=== PATIENT | female | born 1990 | race Caucasian/White ===

== ENCOUNTER 2017-05-16 22:48 | Inpatient (IN) | payer BC ==
[2017-05-17] MEDS ORDERED: Sodium Chloride 0.9% 10 ML Syringe FLUSH PRN (00:25)
[2017-05-17] MEDS ORDERED: Oxytocin/Lactated Ringers 10 UNIT/1,000 ML BAG IV SCH (00:30)
[2017-05-17] MEDS: Lactated Ringers 1,000 ML IV SCH ×4 (02:50→08:13)
[2017-05-17] MEDS ORDERED: fentaNYL 100 MCG/2 ML SDV EPIDUR PRN (03:11)
[2017-05-17] MEDS ORDERED: ePHEDrine 50 MG/ML SDV IVPUSH PRN (03:11)
[2017-05-17] MEDS ORDERED: Ondansetron 4 MG/2 ML SDV IVPUSH PRN (03:11)
--- NOTE | 2017-05-17 03:13 | PCM.PREANE ---
Preanesthetic Assessment - Anesthesia/Transfusion/Family Hx Anesthesia History: Prior Anesthesia Without Reaction Family History of Anesthesia Reaction: No Transfusion History: No Prior Transfusion(s) Intubation History: Unknown - Review of Systems General: No Symptoms Pulmonary: No Symptoms Cardiovascular: No Symptoms Gastrointestinal: No Symptoms Neurological: Tingling (CTS with ) Other: Reports: None - Physical Assessment NPO Status Date: 05/16/17 NPO Status Time: 12:00 Pulse: 84 O2 Sat by Pulse Oximetry: 97 Respiratory Rate: 16 Blood Pressure: 125/73 Temperature: 36.7 C Vital Signs: Last Vital Signs Temp 36.7 C 05/17/17 00:25 Pulse 84 05/17/17 00:25 Resp 16 05/17/17 00:25 BP 125/73 05/17/17 00:25 Pulse Ox 97 05/17/17 00:25 Height: 1.57 m Weight: 72.665 kg ASA Class: 2 Mental Status: Alert & Oriented x3 Airway Class: Mallampati = 2 Dentition: Reports: Normal Dentition (bottom retainer noted.), Caries Thyro-Mental Finger Breadths: 3 Mouth Opening Finger Breadths: 3 ROM/Head Extension: Full Lungs: Clear to Auscultation, Normal Respiratory Effort Cardiovascular: Regular Rate, Regular Rhythm, No Murmurs - Lab Values: Laboratory Last Values WBC 15.79 K/mm3 (3.98-10.04) H 05/17/17 00:40 RBC 4.09 M/mm3 (3.98-5.22) 05/17/17 00:40 Hgb 12.2 gm/L (11.2-15.7) 05/17/17 00:40 Hct 37.3 % (34.1-44.9) 05/17/17 00:40 MCV 91.2 fl (79.4-94.8) 05/17/17 00:40 MCH 29.8 pg (25.6-32.2) 05/17/17 00:40 MCHC 32.7 g/dl (32.2-35.5) 05/17/17 00:40 RDW Std Deviation 45.8 fL (36.4-46.3) 05/17/17 00:40 Plt Count 197 K/mm3 (182-369) 05/17/17 00:40 MPV 10.9 fl (9.4-12.3) 05/17/17 00:40 Neut % (Auto) 75.8 % (34.0-71.1) H 05/17/17 00:40 Lymph % (Auto) 14.9 % (19.3-51.7) L 05/17/17 00:40 [place] % (Auto) 7.2 % (4.7-12.5) 05/17/17 00:40 Eos % (Auto) 0.8 (0.7-5.8) 05/17/17 00:40 Baso % (Auto) 0.3 % (0.1-1.2) 05/17/17 00:40 Neut # (Auto) 11.96 K/mm3 (1.56-6.13) H 05/17/17 00:40 Lymph # (Auto) 2.36 K/mm3 (1.18-3.74) 05/17/17 00:40 [place] # (Auto) 1.14 K/mm3 (0.24-0.36) H 05/17/17 00:40 Eos # (Auto) 0.12 K/mm3 (0.04-0.36) 05/17/17 00:40 Baso # (Auto) 0.05 K/mm3 (0.01-0.08) 05/17/17 00:40 Manual Slide Review Normal smear 05/17/17 00:40 Blood Type O POSITIVE 05/17/17 00:40 Gel Antibody Screen Negative 05/17/17 00:40 Above labs reviewed and noted. - Allergies Allergies/Adverse Reactions: Allergies Allergy/AdvReac Type Severity Reaction Status Date / Time No Known Allergies Allergy Verified 01/31/15 10:27 - Anesthesia Plan Pre-Op Medication Ordered: None - Acknowledgements Anesthesia Type Planned: Epidural Pt an Appropriate Candidate for the Planned Anesthesia: Yes Alternatives and Risks of Anesthesia Discussed w Pt/Guardian: Yes Pt/Guardian Understands and Agrees with Anesthesia Plan: Yes PreAnesthesia Questionnaire - Past Health History Medical/Surgical History: Denies Medical/Surgical History Gastrointestinal History: Reports: GERD, Other (See Below) 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: Reports: - Past Surgical History HEENT Surgical History: Reports: Oral Surgery, Tonsillectomy Other HEENT Surgeries/Procedures: Tosillectomy 2010, [place] teeth removal 2012 - SUBSTANCE USE Smoking Status *Q: Former Smoker Tobacco Use Within Last Twelve Months: No Second Hand Smoke Exposure: No Days Per Week of Alcohol Use: 0 Recreational Drug Use History: No - HOME MEDS Home Medications: Home Meds PNV95/Ferrous Fumarate/FA [ Multivitamins] 1 each PO DAILY 01/31/15 [ History] - CURRENT (IN HOUSE) MEDS Current Meds: Current Medications Lactated Ringer's (Ringers, Lactated) 1,000 mls @ 100 mls/hr IV ASDIRECTED ESTIVEN Oxytocin/Lactated Ringer's (Pitocin In Lr 10 Units/1,000 Ml) 10 unit in 1,000 mls @ 100 mls/hr IV .CONTINUOUS ESTIVEN Sodium Chloride (Saline Flush) 10 ml FLUSH ASDIRECTED PRN PRN Reason: Keep Vein Open
[2017-05-17] MEDS ORDERED: Bupivacaine/fentaNYL/NS 100 ML Bag EPIDUR SCH (03:15)
--- NOTE | 2017-05-17 08:05 | PCM.LDHP ---
L&D History of Present Illness - General Date of Service: 05/17/17 Admit Problem/Dx: Patient Status Order with Admit Dx/Problem 05/17/17 00:25 Patient Status [ADT] Routine Admission Diagnosis/Problem Admission Diagnosis/Problem - History of Present Illness Introduction:: 26 year old female at 38w5d admitted with very painful uterine contractions and cervical change from 2 (reportedly in the clinic) to 3 and then to 4+. care with Dr. Ponce without complications. O+/Jonathan/GBSneg Pain Score: 10 - Related Data Allergies/Adverse Reactions: Allergies Allergy/AdvReac Type Severity Reaction Status Date / Time No Known Allergies Allergy Verified 01/31/15 10:27 Home Medications: Home Meds PNV95/Ferrous Fumarate/FA [ Multivitamins] 1 each PO DAILY 01/31/15 [ History] Past Medical History - Past Health History Medical/Surgical History: Denies Medical/Surgical History Gastrointestinal History: Reports: GERD, Other (See Below) Other Gastrointestinal History: only with PATHOLOGIST History: Reports: - Past Surgical History HEENT Surgical History: Reports: Oral Surgery, Tonsillectomy Other HEENT Surgeries/Procedures: Tosillectomy 2010, [place] teeth removal 2012 Social & Family History - Family History Family Medical History: Noncontributory - Tobacco Use Smoking Status *Q: Former Smoker Used Tobacco, but Quit: Yes Month Tobacco Last Used: 2011 Second Hand Smoke Exposure: No - Caffeine Use Caffeine Use: Reports: Coffee Caffeine Use Comment: 3-4 times per week - Alcohol Use Days Per Week of Alcohol Use: 0 - Recreational Drug Use Recreational Drug Use: No H&P Review of Systems - Review of Systems: Review Of Systems: See Below General: Reports: No Symptoms HEENT: Reports: No Symptoms Pulmonary: Reports: No Symptoms Cardiovascular: Reports: No Symptoms Gastrointestinal: Reports: No Symptoms Genitourinary: Reports: No Symptoms Musculoskeletal: Reports: No Symptoms Skin: Reports: No Symptoms Psychiatric: Reports: No Symptoms Neurological: Reports: No Symptoms Hematologic/Lymphatic: Reports: No Symptoms Immunologic: Reports: No Symptoms L&D Exam - Exam Exam: See Below - Vital Signs Vital Signs: Last Vital Signs Temp 36.7 C 05/17/17 03:26 Pulse 84 05/17/17 03:26 Resp 16 05/17/17 03:26 BP 125/73 05/17/17 03:26 Pulse Ox 97 05/17/17 03:26 Weight: 72.665 kg - OB Specific Contraction Intensity: Moderate to Strong Movement: Active Heart Tones: Present Heart Rate (FHR) Variability: Moderate (6-25 bmp) Presentation: Vertex - Burnett Score Burnett Score Cervix Position: Midposition Burnett Score Consistency: Soft Burnett Score Dilation: > 5 cm Burnett Score Infant's Station: -3 - Exam General: Alert, Oriented HEENT: PERRLA, Conjunctiva Clear, EACs Clear, EOMI, Hearing Intact, Mucosa Moist & [place], Nares Patent, Normal Nasal Septum, Posterior Pharynx Clear, TMs Clear Neck: Supple, Trachea Midline Lungs: Clear to Auscultation, Normal Respiratory Effort Cardiovascular: Regular Rate, Regular Rhythm GI/Abdominal Exam: Normal Bowel Sounds, Soft, Non-Tender, No Organomegaly, No Distention, No Abnormal Bruit, No Mass, Pelvis Stable Genitourinary: Normal external exam Back Exam: Normal Inspection, Full Range of Motion Extremities: Normal Inspection, Normal Range of Motion, Non-Tender, No Pedal Edema, Normal Capillary Refill Skin: Warm, Dry, Intact Neurological: Cranial Nerves Intact, Reflexes Equal Bilateral Psychiatric: Alert, Normal Affect, Normal Mood - Patient Data Lab Results Last 24 hrs: Laboratory Results - last 24 hr 05/17/17 05/17/17 Range/Units 00:40 00:40 WBC 15.79 H (3.98-10.04) K/mm3 RBC 4.09 (3.98-5.22) M/mm3 Hgb 12.2 (11.2-15.7) gm/L Hct 37.3 (34.1-44.9) % MCV 91.2 (79.4-94.8) fl MCH 29.8 (25.6-32.2) pg MCHC 32.7 (32.2-35.5) g/dl RDW Std Deviation 45.8 (36.4-46.3) fL Plt Count 197 (182-369) K/mm3 MPV 10.9 (9.4-12.3) fl Neut % (Auto) 75.8 H (34.0-71.1) % Lymph % (Auto) 14.9 L (19.3-51.7) % [place] % (Auto) 7.2 (4.7-12.5) % Eos % (Auto) 0.8 (0.7-5.8) Baso % (Auto) 0.3 (0.1-1.2) % Neut # (Auto) 11.96 H (1.56-6.13) K/mm3 Lymph # (Auto) 2.36 (1.18-3.74) K/mm3 [place] # (Auto) 1.14 H (0.24-0.36) K/mm3 Eos # (Auto) 0.12 (0.04-0.36) K/mm3 Baso # (Auto) 0.05 (0.01-0.08) K/mm3 Manual Slide Review Normal smear Blood Type O POSITIVE Gel Antibody Screen Negative Result Diagrams: 05/17/17 00:40 Problem List Initiated/Reviewed/Updated: Yes Orders Last 24hrs: Active Orders 24 hr Category Date Time Status Patient Status [ADT] Routine ADT 05/17/17 00:25 Active Activity as Tolerated [RC] PFP Care 05/17/17 00:25 Active Communication Order [RC] ASDIRECTED Care 05/17/17 00:25 Active Heart Tones [RC] ASDIRECTED Care 05/17/17 00:26 Active Notify Provider [RC] ASDIRECTED Care 05/17/17 03:11 Active Notify Provider [RC] PFP Care 05/17/17 00:25 Active Notify Provider [RC] PRN Care 05/17/17 00:25 Active Oxygen Therapy [RC] ASDIRECTED Care 05/17/17 03:10 Active Peripheral IV Care [RC] . DIRECTED Care 05/17/17 00:26 Active Pulse Oximetry [RC] ASDIRECTED Care 05/17/17 03:11 Active Vital Signs [RC] PER UNIT ROUTINE Care 05/17/17 00:25 Active Clear Liquid Diet [DIET] Diet 05/17/17 Breakfast Active PATIENT RETYPE [BBK] Routine Lab 05/17/17 00:40 Results TYPE AND SCREEN [BBK] Routine Lab 05/17/17 00:40 Results Bupivacaine/fentaNYL/NS [fentaNYL/Bupivacaine/NS 2 MCG- Med 05/17/17 03:15 Active 0.125% 100 ML] 100 ml EPIDUR ASDIRECTED Lactated Ringers [Ringers, Lactated] 1,000 ml Med 05/17/17 00:30 Active IV ASDIRECTED Ondansetron [Zofran] Med 05/17/17 03:11 Active 4 mg IVPUSH ONETIME PRN Oxytocin/Lactated Ringers [Pitocin in LR 10 Units/1,000 Med 05/17/17 00:30 Active ML] 10 unit in 1,000 ml IV .CONTINUOUS Sodium Chloride 0.9% [Saline Flush] Med 05/17/17 00:25 Active 10 ml FLUSH ASDIRECTED PRN ePHEDrine [ePHEDrine Sulfate] Med 05/17/17 03:11 Active 5 mg IVPUSH ASDIRECTED PRN fentaNYL [Sublimaze] Med 05/17/17 03:11 Active 100 mcg EPIDUR Q3H PRN Electronic Heart Tones Ext w TOCO [WOMSER] Oth 05/17/17 00:25 Ordered Routine Electronic Heart Tones Internal [WOMSER] Per Unit Oth 05/17/17 00:25 Ordered Routine Peripheral IV Insertion Adult [OM.PC] Routine Oth 05/17/17 00:25 Ordered Resuscitation Status Routine Resus Stat 05/17/17 00:25 Ordered Medication Orders Ephedrine Sulfate (Ephedrine Sulfate) 5 mg IVPUSH ASDIRECTED PRN PRN Reason: Hypotension Fentanyl (Sublimaze) 100 mcg EPIDUR Q3H PRN PRN Reason: Pain Last Admin: 05/17/17 03:28 Dose: 100 mcg Fentanyl/Bupivacaine HCl (Fentanyl/Bupivacaine/Ns 2 Mcg-0.125% 100 Ml) 100 ml EPIDUR ASDIRECTED [facility] Last Admin: 05/17/17 03:27 Dose: 100 ml Lactated Ringer's (Ringers, Lactated) 1,000 mls @ 100 mls/hr IV ASDIRECTED [facility] Last Infusion: 05/17/17 06:08 Dose: 800 mls/hr Admin: 05/17/17 06:01 Dose: 999 mls/hr Infusion: 05/17/17 05:44 Dose: 999 mls/hr Admin: 05/17/17 04:43 Dose: 999 mls/hr Infusion: 05/17/17 04:00 Dose: 999 mls/hr Infusion: 05/17/17 03:00 Dose: 999 mls/hr Admin: 10/21/17 02:50 Dose: 100 mls/hr Oxytocin/Lactated Ringer's (Pitocin In Lr 10 Units/1,000 Ml) 10 unit in 1,000 mls @ 100 mls/hr IV .CONTINUOUS ESTIVEN Ondansetron HCl (Zofran) 4 mg IVPUSH ONETIME PRN PRN Reason: Nausea/Vomiting Sodium Chloride (Saline Flush) 10 ml FLUSH ASDIRECTED PRN PRN Reason: Keep Vein Open Assessment/Plan Comment:: Term . Epidural now in place - progressing well. IVF. Monitor progress closely. Consider AROM. Anticipate .
--- NOTE | 2017-05-17 08:27 | PCM.PNLD ---
Labor Progress Note - VS & Meds Vital Signs: Last Vital Signs Temp 36.7 C 05/17/17 03:26 Pulse 84 05/17/17 03:26 Resp 16 05/17/17 03:26 BP 125/73 05/17/17 03:26 Pulse Ox 97 05/17/17 03:26 Active Medications: Current Medications Ephedrine Sulfate (Ephedrine Sulfate) 5 mg IVPUSH ASDIRECTED PRN PRN Reason: Hypotension Fentanyl (Sublimaze) 100 mcg EPIDUR Q3H PRN PRN Reason: Pain Last Admin: 05/17/17 03:28 Dose: 100 mcg Fentanyl/Bupivacaine HCl (Fentanyl/Bupivacaine/Ns 2 Mcg-0.125% 100 Ml) 100 ml EPIDUR ASDIRECTED ESTIVEN Last Admin: 05/17/17 03:27 Dose: 100 ml Lactated Ringer's (Ringers, Lactated) 1,000 mls @ 100 mls/hr IV ASDIRECTED ESTIVEN Last Admin: 05/17/17 08:13 Dose: 100 mls/hr Oxytocin/Lactated Ringer's (Pitocin In Lr 10 Units/1,000 Ml) 10 unit in 1,000 mls @ 100 mls/hr IV .CONTINUOUS ESTIVEN Ondansetron HCl (Zofran) 4 mg IVPUSH ONETIME PRN PRN Reason: Nausea/Vomiting Sodium Chloride (Saline Flush) 10 ml FLUSH ASDIRECTED PRN PRN Reason: Keep Vein Open - Uterine Contractions Uterine Monitoring Mode: External [place] Contraction Intensity: Moderate to Strong - Monitoring Monitor Mode: External Ultrasound Heart Rate (FHR) Baseline: 140 Heart Rate (FHR) Variability: Moderate (6-25 bmp) Accelerations: Present, 15x15 Decelerations: None Strip Review: Category I - Vaginal Exam Dilation (cm): 6 Effacement (Percent): 90 Station: -3 Cervical Position: Midposition - Labor Progress (Free Text) Labor Progress: AROM clear fluid. Good progress. Comfortable with epidural.
[2017-05-17] MEDS ORDERED: Hydrocortisone Acetate 25 MG Supp RECTAL PRN (12:03)
[2017-05-17] MEDS ORDERED: Witch Hazel Medicated Pads 100/Jar TOP PRN (12:03)
[2017-05-17] MEDS ORDERED: Lanolin 100% Cream 7 GM Tube TOP PRN (12:03)
[2017-05-17] MEDS ORDERED: Benzocaine/Menthol 20%-0.5% Spray 56 GM Canister TOP PRN (12:03)
[2017-05-17] MEDS: Prenatal Multivitamin with Calcium/Folic Acid/Iron Tab PO SCH (12:54)
[2017-05-17] MEDS: Ibuprofen 600 MG Tab PO PRN ×2 (12:55→18:53)
[2017-05-17] MEDS ORDERED: Acetaminophen 325 MG Tab PO PRN (22:08)
[2017-05-17] MEDS ORDERED: Bupivacaine 0.25% 10 ML SDV ONE (22:22)
[2017-05-18] MEDS: Ibuprofen 600 MG Tab PO PRN ×2 (00:57→08:21)
--- NOTE | 2017-05-18 07:46 | PCM.DCSUM1 ---
Discharge Summary - Hospital Course Brief History: Admitted 05.17.17 in active labor. 05.17.17 without complications. - Discharge Data Discharge Date: 05/18/17 Discharge Disposition: Home, Self-Care 01 Condition: Good - Patient Summary/Data Hospital Course: without complications. Uncomplicated course. - Patient Instructions Diet: Usual Diet as Tolerated Activity: No Strenuous Activities Activity, Other: pelvic rest Driving: May Drive Today Showering/Bathing: May Shower Notify Provider of: Fever, Increased Pain, Swelling and Redness, Drainage, Nausea and/or Vomiting - Discharge Plan Home Medications: Home Meds PNV95/Ferrous Fumarate/FA [ Multivitamins] 1 each PO DAILY 01/31/15 [ History] Patient Handouts: Vaginal Delivery, Care After Referrals: Ashley Ponce MD [Physician] - (6 weeks) - Discharge Summary/Plan Comment DC Time >30 min.: No - General Info Date of Service: 05/18/17 Functional Status: Reports: Pain Controlled - Review of Systems General: Reports: No Symptoms HEENT: Reports: No Symptoms Pulmonary: Reports: No Symptoms Cardiovascular: Reports: No Symptoms Gastrointestinal: Reports: No Symptoms Genitourinary: Reports: No Symptoms Musculoskeletal: Reports: No Symptoms Skin: Reports: No Symptoms Neurological: Reports: No Symptoms Psychiatric: Reports: No Symptoms - Patient Data Vitals - Most Recent: Last Vital Signs Temp 36.5 C 05/18/17 03:53 Pulse 111 H 05/18/17 03:53 Resp 16 05/18/17 03:53 BP 110/54 L 05/18/17 03:53 Pulse Ox 98 05/18/17 03:53 Weight - Most Recent: 72.665 kg Med Orders - Current: Current Medications Acetaminophen (Tylenol) 650 mg PO Q6H PRN PRN Reason: Pain Last Admin: 05/17/17 22:19 Dose: 650 mg Benzocaine/Menthol (Dermoplast Pain Relief [place]) 0 gm TOP ASDIRECTED PRN PRN Reason: Perineal Comfort Measure Last Admin: 05/17/17 12:56 Dose: 1 can Emollient Ointment (Lansinoh Hpa) 0 gm TOP ASDIRECTED PRN PRN Reason: Sore Nipples Hydrocortisone Acetate (Anucort-Hc) 25 mg RECTAL BID PRN PRN Reason: Hemorrhoid pain Ibuprofen (Motrin) 600 mg PO Q6H PRN PRN Reason: Mild pain or fever Last Admin: 05/18/17 00:57 Dose: 600 mg Prenat Multivit/[place]/Iron/Folic Ac ( Plus Iron) 1 each PO DAILY [facility] Last Admin: 05/17/17 12:54 Dose: 1 each Witch Brittany (Tucks) 1 pad TOP ASDIRECTED PRN PRN Reason: Hemorrhoid pain Last Admin: 05/17/17 12:55 Dose: 1 canister Discontinued Medications Ephedrine Sulfate (Ephedrine Sulfate) 5 mg IVPUSH ASDIRECTED PRN PRN Reason: Hypotension Fentanyl (Sublimaze) 100 mcg EPIDUR Q3H PRN PRN Reason: Pain Last Admin: 05/17/17 03:28 Dose: 100 mcg Fentanyl/Bupivacaine HCl (Fentanyl/Bupivacaine/Ns 2 Mcg-0.125% 100 Ml) 100 ml EPIDUR ASDIRECTED [facility] Last Admin: 05/17/17 03:27 Dose: 100 ml Lactated Ringer's (Ringers, Lactated) 1,000 mls @ 100 mls/hr IV ASDIRECTED [facility] Last Admin: 05/17/17 08:13 Dose: 100 mls/hr Oxytocin/Lactated Ringer's (Pitocin In Lr 10 Units/1,000 Ml) 10 unit in 1,000 mls @ 100 mls/hr IV .CONTINUOUS [facility] Last Admin: 05/17/17 11:05 Dose: 500 mls/hr Ondansetron HCl (Zofran) 4 mg IVPUSH ONETIME PRN PRN Reason: Nausea/Vomiting Sodium Chloride (Saline Flush) 10 ml FLUSH ASDIRECTED PRN PRN Reason: Keep Vein Open - Exam General: Reports: Alert, Oriented HEENT: Reports: Pupils Equal, Pupils Reactive, EOMI, Mucous Membr. Moist/[place]ck: Reports: Supple Lungs: Reports: Clear to Auscultation, Normal Respiratory Effort Cardiovascular: Reports: Regular Rate, Regular Rhythm GI/Abdominal Exam: Normal Bowel Sounds, Soft, Non-Tender, No Organomegaly, No Distention, No Abnormal Bruit, No Mass, Pelvis Stable Back Exam: Reports: Normal Inspection, Full Range of Motion Extremities: Normal Inspection, Normal Range of Motion, Non-Tender, No Pedal Edema, Normal Capillary Refill Skin: Reports: Warm, Dry, Intact Wound/Incisions: Reports: Healing Well Neurological: Reports: No New Focal Deficit Psy/Mental Status: Reports: Alert, Normal Affect, Normal Mood *Q Meaningful Use (DIS) - VTE *Q VTE Criteria *Q: - Stroke *Q Stroke Criteria *Q: - AMI *Q AMI Criteria *Q:
[2017-05-18] MEDS: Prenatal Multivitamin with Calcium/Folic Acid/Iron Tab PO SCH (08:21)
[2017-05-18 08:59] VITALS: BP 120/74
== END 2017-05-18 12:47 | disposition home or self-care (01) | DRG 560 ==
LOC: JD.OBCHECK 22:48 → JD.OB 22:52 → JD.OBCHECK 05-17 00:25 → JD.OB 05-17 00:25 → OBSVTOIN 05-17 11:03 → JD.OB 05-17 11:03
PROVIDERS: ADMIT Obstetrics & Gynecology; ATTEND Obstetrics & Gynecology
PROC: 10E0XZZ Delivery of Products of Conception, External Approach (ICD-10-PCS; principal; 2017-05-17)
PROC: 10907ZC Drainage of Amniotic Fluid, Therapeutic from Products of Conception, Via Natural or Artificial Opening (ICD-10-PCS; 2017-05-17)
PROC: 0KQM0ZZ Repair Perineum Muscle, Open Approach (ICD-10-PCS; 2017-05-17)
PROC: 00HU33Z Insertion of Infusion Device into Spinal Canal, Percutaneous Approach (ICD-10-PCS; 2017-05-17)
PROC: 3E0R3BZ Introduction of Anesthetic Agent into Spinal Canal, Percutaneous Approach (ICD-10-PCS; 2017-05-17)
DX: O70.1 Second degree perineal laceration during delivery (principal); Z3A.39 39 weeks gestation of pregnancy; Z37.0 Single live birth; Z87.891 Personal history of nicotine dependence
CPT/HCPCS: 36415; 51702; 59300; 59409; 85025; 86850; 86900; 86901; A9270-GY; J2590; J3010; J7120

== ENCOUNTER 2020-02-21 02:00 | Inpatient (IN) | payer BC ==
[2020-02-21] MEDS ORDERED: Nalbuphine 10 MG/ML Syringe IVPUSH PRN (19:11)
[2020-02-21] MEDS ORDERED: Ondansetron 4 MG/2 ML SDV IVPUSH PRN (19:11)
[2020-02-21] MEDS ORDERED: Sodium Chloride 0.9% 10 ML Syringe FLUSH PRN (19:11)
--- NOTE | 2020-02-21 19:14 | PCM.LDHP ---
L&D History of Present Illness - General Date of Service: 02/21/20 Admit Problem/Dx: Patient Status Order with Admit Dx/Problem 02/21/20 19:11 Patient Status [ADT] Routine Admission Diagnosis/Problem Admission Diagnosis/Problem Normal in third trimester Source of Information: Patient History Limitations: Reports: No Limitations - History of Present Illness Introduction:: Patient is a 29 y/o at 40 1/7 wks who presents for elective IOL. Doing well today. No significant contractions. Good FM - Related Data Allergies/Adverse Reactions: Allergies Allergy/AdvReac Type Severity Reaction Status Date / Time No Known Allergies Allergy Verified 01/31/15 10:27 Home Medications: Home Meds PNV95/Ferrous Fumarate/FA [ Multivitamins] 1 each PO DAILY 01/31/15 [History] Past Medical History REPA[employer]ER [employer]GEAR History: Reports: : 3 Para: 2 LMP (Approximate): Psychiatric History: Reports: Anxiety - Past Surgical History HEENT Surgical History: Reports: Naso-Sinus Surgery, Oral Surgery, Tonsillectomy Other HEENT Surgeries/Procedures: Tosillectomy 2011, [place] teeth removal 2012 Social & Family History - Family History Family Medical History: Noncontributory - Tobacco Use Smoking Status *Q: Never Smoker - Caffeine Use Caffeine Use: Reports: Coffee Caffeine Use Comment: 3-4 times per week - Alcohol Use Alcohol Use History: No - Recreational Drug Use Recreational Drug Use: No H&P Review of Systems - Review of Systems: Review Of Systems: See Below General: Reports: No Symptoms Pulmonary: Reports: No Symptoms Cardiovascular: Reports: No Symptoms Gastrointestinal: Reports: No Symptoms Genitourinary: Reports: No Symptoms Musculoskeletal: Reports: No Symptoms Psychiatric: Reports: No Symptoms Neurological: Reports: No Symptoms L&D Exam - Exam Exam: See Below - OB Specific Contraction Intensity: Irritability Movement: Active Heart Tones: Present Heart Tones per Min: 140 Heart Rate (FHR) Variability: Moderate (6-25 bmp) Presentation: Vertex - Burnett Score Burnett Score Cervix Position: Midposition Burnett Score Consistency: Soft Burnett Score Effacement: 51-70% Burnett Score Dilation: 3-4 cm Burnett Score Infant's Station: -2 Burnett Score Total: 8 - Exam General: Alert, Oriented, Cooperative Lungs: Clear to Auscultation, Normal Respiratory Effort Cardiovascular: Regular Rate, Regular Rhythm GI/Abdominal Exam: Soft, Non-Tender Genitourinary: Normal external exam Extremities: Normal Inspection Skin: Warm, Dry, Intact - Patient Data Result Diagrams: 02/21/20 19:34 - Problem List (1) 40 weeks gestation of SNOMED Code(s): 57678628 ICD Code: Z3A.40 - 40 WEEKS GESTATION OF Status: Acute Current Visit: Yes (2) Choroid plexus cyst of fetus SNOMED Code(s): 814368962 ICD Code: [id number] - Status: Acute Current Visit: Yes Problem List Initiated/Reviewed/Updated: Yes Orders Last 24hrs: Active Orders 24 hr Category Date Time Status Patient Status [ADT] Routine ADT 02/21/20 19:11 Ordered Communication Order [RC] ASDIRECTED Care 02/21/20 19:11 Ordered Communication Order [RC] ASDIRECTED Care 02/21/20 19:11 Ordered Communication Order [RC] ASDIRECTED Care 02/21/20 19:11 Ordered Heart Tones [RC] ASDIRECTED Care 02/21/20 19:12 Ordered Non Stress Test [RC] PER UNIT ROUTINE Care 02/21/20 19:11 Ordered Notify Provider [RC] ASDIRECTED Care 02/21/20 19:11 Ordered Notify Provider [RC] PRN Care 02/21/20 19:11 Ordered Peripheral IV Care [RC] . DIRECTED Care 02/21/20 19:12 Ordered Vaginal Exam [RC] ASDIRECTED Care 02/21/20 19:11 Ordered Vital Signs [RC] ASDIRECTED Care 02/21/20 19:11 Ordered Vital Signs [RC] PER UNIT ROUTINE Care 02/21/20 19:11 Ordered Regular Diet [DIET] Diet 02/21/20 Dinner Ordered CBC W/O DIFF,HEMOGRAM [HEME] Routine Lab 02/21/20 19:11 Ordered CORONAVIRUS COVID-19 PRIETO [MOLEC] Routine Lab 02/21/20 19:11 Ordered RAPID PLASMA REAGIN,RPR [CHEM] Routine Lab 02/21/20 19:11 Ordered TYPE AND SCREEN [BBK] Routine Lab 02/21/20 19:11 Ordered Lactated Ringers [Ringers, Lactated] 1,000 ml Med 02/21/20 19:15 Ordered IV ASDIRECTED Nalbuphine [Nubain] Med 02/21/20 19:11 Ordered 10 mg IVPUSH Q2H PRN Ondansetron [Zofran] Med 02/21/20 19:11 Ordered 4 mg IVPUSH Q4H PRN Oxytocin/Lactated Ringers [Pitocin in LR 10 Units/1,000 Med 02/21/20 19:15 Ordered ML] 10 unit in 1,000 ml IV .CONTINUOUS Oxytocin/Lactated Ringers [Pitocin in LR 10 Units/1,000 Med 02/21/20 19:15 Ordered ML] 10 unit in 1,000 ml IV TITRATE Sodium Chloride 0.9% [Saline Flush] Med 02/21/20 19:11 Ordered 10 ml FLUSH ASDIRECTED PRN Electronic Heart Tones Ext w TOCO [WOMSER] Ot 02/21/20 19:11 Ordered Routine Electronic Heart Tones Internal [WOMSER] Per Unit Ot 02/21/20 19:11 Ordered Routine Peripheral IV Insertion Adult [OM.PC] Routine Ot 02/21/20 19:11 Ordered Resuscitation Status Routine Resus Stat 02/21/20 19:11 Ordered Assessment/Plan Comment:: * Labs to be done * AROM done. Pitocin if required * GBS negative * Pain management per patient preference * Anticipate
[2020-02-21] MEDS ORDERED: Lactated Ringers 1,000 ML IV SCH (19:15)
[2020-02-21] MEDS ORDERED: Oxytocin/Lactated Ringers 10 UNIT/1,000 ML BAG IV SCH ×2 (19:15)
[2020-02-21] MEDS ORDERED: fentaNYL 100 MCG/2 ML SDV EPIDUR PRN (23:05)
[2020-02-21] MEDS ORDERED: ePHEDrine 50 MG/ML SDV IVPUSH PRN (23:05)
[2020-02-21] MEDS ORDERED: diphenhydrAMINE 50 MG/ML SDV IVPUSH PRN (23:05)
[2020-02-21] MEDS ORDERED: Bupivacaine/fentaNYL/NS 100 ML Bag EPIDUR PRN (23:05)
--- NOTE | 2020-02-21 23:39 | PCM.PREANE ---
Preanesthetic Assessment - Procedure Proposed Procedure: elizabeth - Anesthesia/Transfusion/Family Hx Anesthesia History: Prior Anesthesia Without Reaction Family History of Anesthesia Reaction: No Transfusion History: No Prior Transfusion(s) Intubation History: Unknown - Review of Systems General: No Symptoms Pulmonary: No Symptoms Cardiovascular: No Symptoms Gastrointestinal: No Symptoms Neurological: No Symptoms Other: Reports: None - Physical Assessment Vital Signs: Last Vital Signs Temp 97.8 F 02/21/20 19:11 Pulse 110 H 02/21/20 19:11 Resp 16 02/21/20 19:11 BP 129/83 02/21/20 19:11 Pulse Ox Height: 5 ft 2 in Weight: 77.474 kg ASA Class: 2 Mental Status: Alert & Oriented x3 Airway Class: Mallampati = 1 Dentition: Reports: Normal Dentition Thyro-Mental Finger Breadths: 3 Mouth Opening Finger Breadths: 3 ROM/Head Extension: Full Lungs: Clear to Auscultation, Normal Respiratory Effort Cardiovascular: Regular Rate, Regular Rhythm - Lab Values: Laboratory Last Values WBC 9.13 K/mm3 (3.98-10.04) 02/21/20 19:34 RBC 4.10 M/mm3 (3.98-5.22) 02/21/20 19:34 Hgb 12.4 gm/dl (11.2-15.7) 02/21/20 19:34 Hct 38.2 % (34.1-44.9) 02/21/20 19:34 MCV 93.2 fl (79.4-94.8) 02/21/20 19:34 MCH 30.2 pg (25.6-32.2) 02/21/20 19:34 MCHC 32.5 g/dl (32.2-35.5) 02/21/20 19:34 RDW Std Deviation 48.4 fL (36.4-46.3) H 02/21/20 19:34 Plt Count 169 K/mm3 (182-369) L 02/21/20 19:34 MPV 11.2 fl (9.4-12.3) 02/21/20 19:34 RPR Non-reactive (NONREACTIVE) 02/21/20 19:34 Blood Type O POSITIVE 02/21/20 19:34 Gel Antibody Screen Negative 02/21/20 19:34 - Allergies Allergies/Adverse Reactions: Allergies Allergy/AdvReac Type Severity Reaction Status Date / Time No Known Allergies Allergy Verified 02/21/20 21:41 - Blood Blood Available: No - Acknowledgements Anesthesia Type Planned: Epidural Pt an Appropriate Candidate for the Planned Anesthesia: Yes Alternatives and Risks of Anesthesia Discussed w Pt/Guardian: Yes Pt/Guardian Understands and Agrees with Anesthesia Plan: Yes PreAnesthesia Questionnaire - Past Health History Medical/Surgical History: Denies Medical/Surgical History Cardiovascular History: Reports: None Respiratory History: Reports: None Gastrointestinal History: Reports: GERD, Other (See Below) Other Gastrointestinal History: only with EMERGENCY MEDICAL TECHNICIAN BASIC History: Reports: : 3 (40) Para: 2 Psychiatric History: Reports: Anxiety - Past Surgical History HEENT Surgical History: Reports: Naso-Sinus Surgery, Oral Surgery, Tonsillectomy Other HEENT Surgeries/Procedures: Tosillectomy 2010, [place] teeth removal 2012 - SUBSTANCE USE Smoking Status *Q: Never Smoker Tobacco Use Within Last Twelve Months: No Second Hand Smoke Exposure: No Recreational Drug Use History: No - HOME MEDS Home Medications: Home Meds PNV95/Ferrous Fumarate/FA [ Multivitamins] 1 each PO DAILY 01/31/15 [History] - CURRENT (IN HOUSE) MEDS Current Meds: Current Medications Diphenhydramine HCl (Benadryl) 25 mg IVPUSH Q6H PRN PRN Reason: pruritis Ephedrine Sulfate (Ephedrine Sulfate) 5 mg IVPUSH ASDIRECTED PRN PRN Reason: Hypotension Fentanyl (Sublimaze) 100 mcg EPIDUR Q3H PRN PRN Reason: Pain Last Admin: 02/21/20 23:23 Dose: 100 mcg Documented by: Fentanyl/Bupivacaine HCl (Fentanyl/Bupivacaine/Ns 2 Mcg-0.125% 100 Ml) 100 ml EPIDUR ASDIRECTED PRN PRN Reason: Pain Last Admin: 02/21/20 23:23 Dose: 100 ml Documented by: Oxytocin/Lactated Ringer's (Pitocin In Lr 10 Units/1,000 Ml) 10 unit in 1,000 mls @ 12 mls/hr IV TITRATE ESTIVEN; Protocol Oxytocin/Lactated Ringer's (Pitocin In Lr 10 Units/1,000 Ml) 10 unit in 1,000 mls @ 500 mls/hr IV .CONTINUOUS ESTIVEN Lactated Ringer's (Ringers, Lactated) 1,000 mls @ 40 mls/hr IV ASDIRECTED ESTIVEN Last Admin: 02/21/20 22:54 Dose: 40 mls/hr Documented by: Nalbuphine HCl (Nubain) 10 mg IVPUSH Q2H PRN PRN Reason: Pain Ondansetron HCl (Zofran) 4 mg IVPUSH Q4H PRN PRN Reason: Nausea/Vomiting Sodium Chloride (Saline Flush) 10 ml FLUSH ASDIRECTED PRN PRN Reason: Keep Vein Open
[2020-02-22] MEDS ORDERED: Bupivacaine 0.25% 10 ML SDV ONE
--- NOTE | 2020-02-22 02:13 | PCM.DEL ---
L & D Note - General Info Date of Service: 02/22/20 - Delivery Note Labor: Induced by ARM, Induced by Oxytocin Delivery Outcome: Livebirth Infant Delivery Method: Spontaneous Vaginal Delivery-Single Infant Delivery Mode: Vacuum Extraction Presentation: Right Occiput Anterior (PRUDENCE) Nuchal Cord: None Anesthesia Type: Epidural Amniotic Fluid Description: Clear Episiotomy Type: None Laceration: None Placenta: Intact, Spontaneous Cord: 3 Vessels Estimated Blood Loss: 100 Resuscitation Needed: Yes : Bulb Syringe, Stimulated, Warmed, Union Used, Warmer Used Delivery Comments (Free Text/Narrative):: The patient was pushing in the dorsal lithotomy position. Sterile vaginal exam complete/complete/+3 station. head in PRUDENCE presentation. With maternal pushing decelerations noted. Did have a terminal bradycardia into the 60's. Given this finding decision made to proceed with VAVD. The mushroom cup was placed without difficulty at 0158. Subsequent vacuum assisted vaginal delivery at 0200 with pushing over one contraction. Total pressure applied 550 mm Hg. Total pop offs 0. Suction was removed following delivery of the head. No nuchal cord The remainder of the delivered without difficulty. The umbilical cord was clamped and cut. Placenta allowed time to separate and expelled intact. Inspection of the perineum following delivery with no lacerations. - General Info Date of Service: 02/22/20 - Patient Data Vitals - Most Recent: Last Vital Signs Temp 36.6 C 02/21/20 19:11 Pulse 110 H 02/21/20 19:11 Resp 16 02/21/20 19:11 BP 129/83 02/21/20 19:11 Pulse Ox Weight - Most Recent: 77.474 kg - Problem List & Annotations (1) 40 weeks gestation of SNOMED Code(s): 07068403 Code(s): Z3A.40 - 40 WEEKS GESTATION OF Status: Acute Current Visit: Yes (2) Choroid plexus cyst of fetus SNOMED Code(s): 005391653 Code(s): DKE0201 - Status: Acute Current Visit: Yes (3) Vaginal delivery SNOMED Code(s): 673459767 Code(s): O80 - ENCOUNTER FOR FULL-TERM UNCOMPLICATED DELIVERY Status: Resolved Current Visit: No - Problem List Review Problem List Initiated/Reviewed/Updated: Yes - My Orders Last 24 Hours: My Active Orders 02/21/20 Dinner Regular Diet [DIET] 02/21/20 19:11 Patient Status [ADT] Routine Communication Order [RC] ASDIRECTED Communication Order [RC] ASDIRECTED Communication Order [RC] ASDIRECTED Non Stress Test [RC] PER UNIT ROUTINE Notify Provider [RC] ASDIRECTED Notify Provider [RC] PRN Vaginal Exam [RC] ASDIRECTED Vital Signs [RC] ASDIRECTED Vital Signs [RC] PER UNIT ROUTINE Nalbuphine [Nubain] 10 mg IVPUSH Q2H PRN Ondansetron [Zofran] 4 mg IVPUSH Q4H PRN Sodium Chloride 0.9% [Saline Flush] 10 ml FLUSH ASDIRECTED PRN Electronic Heart Tones Ext w TOCO [WOMSER] Routine Electronic Heart Tones Internal [WOMSER] Per Unit Routine Peripheral IV Insertion Adult [OM.PC] Routine Resuscitation Status Routine 02/21/20 19:12 Heart Tones [RC] ASDIRECTED Peripheral IV Care [RC] . DIRECTED 02/21/20 19:15 Lactated Ringers [Ringers, Lactated] 1,000 ml IV ASDIRECTED Oxytocin/Lactated Ringers [Pitocin in LR 10 Units/1,000 ML] 10 unit in 1,000 ml IV .CONTINUOUS Oxytocin/Lactated Ringers [Pitocin in LR 10 Units/1,000 ML] 10 unit in 1,000 ml IV TITRATE 02/22/20 02:11 Patient Status Manage Transfer [TRANSFER] Routine - Assessment Assessment:: PPD#0 - Plan Plan:: * Routine cares * breast feeding * Discharge home in 1-2 days
[2020-02-22] MEDS ORDERED: Benzocaine/Menthol 20%-0.5% Spray 56 GM Canister TOP PRN (02:25)
[2020-02-22] MEDS ORDERED: Witch Hazel Medicated Pads 40/Jar TOP PRN (02:25)
[2020-02-22] MEDS ORDERED: Docusate Sodium 100 MG Cap PO PRN (02:25)
[2020-02-22] MEDS ORDERED: Acetaminophen 325 MG Tab PO PRN (02:25)
[2020-02-22] MEDS: Ibuprofen 600 MG Tab PO PRN ×3 (03:40→18:05)
--- NOTE | 2020-02-22 07:52 | PCM48HPAN ---
Post Anesthesia Note - EVALUATION WITHIN 48HRS OF ANESTHETIC Vital Signs in Normal Range: Yes Patient Participated in Evaluation: Yes Respiratory Function Stable: Yes Airway Patent: Yes Cardiovascular Function Stable: Yes Hydration Status Stable: Yes Pain Control Satisfactory: Yes Nausea and Vomiting Control Satisfactory: Yes Mental Status Recovered: Yes Vital Signs: Last Vital Signs Temp 36.6 C 02/21/20 19:11 Pulse 110 H 02/21/20 19:11 Resp 16 02/21/20 19:11 BP 129/83 02/21/20 19:11 Pulse Ox - COMMENTS/OBSERVATIONS Free Text/Narrative:: Holding baby in bed, no questions or concerns.
[2020-02-23] MEDS: Ibuprofen 600 MG Tab PO PRN (02:19)
--- NOTE | 2020-02-23 04:57 | PCM.DCSUM1 ---
Discharge Summary - Discharge Data Discharge Date: 02/23/20 Discharge Disposition: Home, Self-Care 01 Condition: Good - Referral to Home Health Primary Care Physician: Ashley Ponce MD - Discharge Diagnosis/Problem(s) (1) 40 weeks gestation of SNOMED Code(s): 71806258 ICD Code: Z3A.40 - 40 WEEKS GESTATION OF Status: Acute Current Visit: Yes (2) Choroid plexus cyst of fetus SNOMED Code(s): 987475905 ICD Code: DSY5690 - Status: Acute Current Visit: Yes (3) Vaginal delivery SNOMED Code(s): 313096707 ICD Code: O80 - ENCOUNTER FOR FULL-TERM UNCOMPLICATED DELIVERY Status: Resolved Current Visit: No - Patient Summary/Data Complications: None Consults: None Recommended Follow-up Testing/Procedures: Follow up in 3 weeks for check Hospital Course: 29 y/o at 40 1/7 wks who presented for elective IOL. Done with AROM and pitocin. Progressed well to complete dilation. Underwent a VAVD due to a terminal bradycardia. See delivery note. did well and was discharged home on PPD#1 - Patient Instructions Diet: Regular Diet as Tolerated Activity: As Tolerated Activity, Other: Pelvic prest for 6 weeks Driving: May Drive Today Showering/Bathing: May Shower Showering/Bathing, Other: May Bathe Notify Provider of: Fever, Increased Pain, Swelling and Redness, Drainage, Nausea and/or Vomiting - Discharge Plan *PRESCRIPTION DRUG MONITORING PROGRAM REVIEWED*: No *COPY OF PRESCRIPTION DRUG MONITORING REPORT IN PATIENT SUELLEN: No Home Medications: Home Meds PNV95/Ferrous Fumarate/FA [ Multivitamins] 1 each PO DAILY 01/31/15 [History] Docusate Sodium [Colace] 100 mg PO BID PRN cap 02/22/20 [Rx] Ibuprofen [Motrin] 600 mg PO Q6H PRN tablet 02/22/20 [Rx] Referrals: Ashley Ponce MD [Primary Care Provider] - (3 weeks for check ) - Discharge Summary/Plan Comment DC Time >30 min.: No - Patient Data Vitals - Most Recent: Last Vital Signs Temp 36.7 C 02/23/20 02:21 Pulse 100 02/23/20 02:21 Resp 16 02/23/20 02:21 BP 115/77 02/23/20 02:21 Pulse Ox 96 02/23/20 02:21 Weight - Most Recent: 77.474 kg Med Orders - Current: Current Medications Acetaminophen (Tylenol) 650 mg PO Q4H PRN PRN Reason: mild pain or fever Benzocaine/Menthol (Dermoplast Pain Relief [place]) 0 gm TOP ASDIRECTED PRN PRN Reason: Perineal Comfort Measure Last Admin: 02/22/20 03:41 Dose: 1 can Documented by: Docusate Sodium (Colace) 100 mg PO BID PRN PRN Reason: Constipation Last Admin: 02/22/20 03:40 Dose: 100 mg Documented by: Ibuprofen (Motrin) 600 mg PO Q6H PRN PRN Reason: Mild pain or fever Last Admin: 02/23/20 02:19 Dose: 600 mg Documented by: Jacobo Soto (Gillian) 1 pad TOP ASDIRECTED PRN PRN Reason: Perineal Comfort Measure Last Admin: 02/22/20 03:40 Dose: 1 can Documented by: Discontinued Medications Bupivacaine HCl (Sensorcaine-Mpf 0.25%) 10 ml .ROUTE .STK-MED ONE Stop: 02/22/20 00:01 Diphenhydramine HCl (Benadryl) 25 mg IVPUSH Q6H PRN PRN Reason: pruritis Ephedrine Sulfate (Ephedrine Sulfate) 5 mg IVPUSH ASDIRECTED PRN PRN Reason: Hypotension Last Admin: 02/22/20 01:04 Dose: 5 mg Documented by: Fentanyl (Sublimaze) 100 mcg EPIDUR Q3H PRN PRN Reason: Pain Last Admin: 02/21/20 23:23 Dose: 100 mcg Documented by: Fentanyl/Bupivacaine HCl (Fentanyl/Bupivacaine/Ns 2 Mcg-0.125% 100 Ml) 100 ml EPIDUR ASDIRECTED PRN PRN Reason: Pain Last Admin: 02/21/20 23:23 Dose: 100 ml Documented by: Oxytocin/Lactated Ringer's (Pitocin In Lr 10 Units/1,000 Ml) 10 unit in 1,000 mls @ 12 mls/hr IV TITRATE ESTIVEN; Protocol Last Admin: 02/22/20 00:09 Dose: 2 munits/min, 12 mls/hr Documented by: Oxytocin/Lactated Ringer's (Pitocin In Lr 10 Units/1,000 Ml) 10 unit in 1,000 mls @ 500 mls/hr IV .CONTINUOUS ESTIVEN Lactated Ringer's (Ringers, Lactated) 1,000 mls @ 40 mls/hr IV ASDIRECTED ESTIVEN Last Admin: 02/21/20 22:54 Dose: 40 mls/hr Documented by: Nalbuphine HCl (Nubain) 10 mg IVPUSH Q2H PRN PRN Reason: Pain Ondansetron HCl (Zofran) 4 mg IVPUSH Q4H PRN PRN Reason: Nausea/Vomiting Last Admin: 02/22/20 00:06 Dose: 4 mg Documented by: Sodium Chloride (Saline Flush) 10 ml FLUSH ASDIRECTED PRN PRN Reason: Keep Vein Open
--- NOTE | 2020-02-23 04:57 | PCM.PNPP ---
- General Info Date of Service: 02/23/20 Functional Status: Reports: Pain Controlled, Tolerating Diet, Ambulating, Urinating - Review of Systems General: Reports: No Symptoms Pulmonary: Reports: No Symptoms Cardiovascular: Reports: No Symptoms Gastrointestinal: Reports: No Symptoms Genitourinary: Reports: No Symptoms Musculoskeletal: Reports: No Symptoms Neurological: Reports: No Symptoms - General Info Date of Service: 02/23/20 - Patient Data Vital Signs - Most Recent: Last Vital Signs Temp 36.7 C 02/23/20 02:21 Pulse 100 02/23/20 02:21 Resp 16 02/23/20 02:21 BP 115/77 02/23/20 02:21 Pulse Ox 96 02/23/20 02:21 Weight - Most Recent: 77.474 kg Med Orders - Current: Current Medications Acetaminophen (Tylenol) 650 mg PO Q4H PRN PRN Reason: mild pain or fever Benzocaine/Menthol (Dermoplast Pain Relief [place]) 0 gm TOP ASDIRECTED PRN PRN Reason: Perineal Comfort Measure Last Admin: 02/22/20 03:41 Dose: 1 can Documented by: Docusate Sodium (Colace) 100 mg PO BID PRN PRN Reason: Constipation Last Admin: 02/22/20 03:40 Dose: 100 mg Documented by: Ibuprofen (Motrin) 600 mg PO Q6H PRN PRN Reason: Mild pain or fever Last Admin: 02/23/20 02:19 Dose: 600 mg Documented by: Jacobo Soto ([place]) 1 pad TOP ASDIRECTED PRN PRN Reason: Perineal Comfort Measure Last Admin: 02/22/20 03:40 Dose: 1 can Documented by: Discontinued Medications Bupivacaine HCl (Sensorcaine-Mpf 0.25%) 10 ml .ROUTE .STK-MED ONE Stop: 02/22/20 00:01 Diphenhydramine HCl (Benadryl) 25 mg IVPUSH Q6H PRN PRN Reason: pruritis Ephedrine Sulfate (Ephedrine Sulfate) 5 mg IVPUSH ASDIRECTED PRN PRN Reason: Hypotension Last Admin: 02/22/20 01:04 Dose: 5 mg Documented by: Fentanyl (Sublimaze) 100 mcg EPIDUR Q3H PRN PRN Reason: Pain Last Admin: 02/21/20 23:23 Dose: 100 mcg Documented by: Fentanyl/Bupivacaine HCl (Fentanyl/Bupivacaine/Ns 2 Mcg-0.125% 100 Ml) 100 ml EPIDUR ASDIRECTED PRN PRN Reason: Pain Last Admin: 02/21/20 23:23 Dose: 100 ml Documented by: Oxytocin/Lactated Ringer's (Pitocin In Lr 10 Units/1,000 Ml) 10 unit in 1,000 mls @ 12 mls/hr IV TITRATE ESTIVEN; Protocol Last Admin: 02/22/20 00:09 Dose: 2 munits/min, 12 mls/hr Documented by: Oxytocin/Lactated Ringer's (Pitocin In Lr 10 Units/1,000 Ml) 10 unit in 1,000 mls @ 500 mls/hr IV .CONTINUOUS ESTIVEN Lactated Ringer's (Ringers, Lactated) 1,000 mls @ 40 mls/hr IV ASDIRECTED ESTIVEN Last Admin: 02/21/20 22:54 Dose: 40 mls/hr Documented by: Nalbuphine HCl (Nubain) 10 mg IVPUSH Q2H PRN PRN Reason: Pain Ondansetron HCl (Zofran) 4 mg IVPUSH Q4H PRN PRN Reason: Nausea/Vomiting Last Admin: 02/22/20 00:06 Dose: 4 mg Documented by: Sodium Chloride (Saline Flush) 10 ml FLUSH ASDIRECTED PRN PRN Reason: Keep Vein Open - Infant Interaction Infant Disposition, : in Room with Family Infant Interaction: Holding Feeding: Breastfed ; Nursed Well Support Person: - Recovery Exam Fundal Tone: Firm Fundal Level: 1 Fingerbreadths Below Umbilicus Fundal Placement: Midline Lochia Amount: Small Lochia Color: Rubra/Red Perineum Description: Intact, Minimal Bruising/Swelling Episiotomy/Laceration: None Bladder Status: Voiding - Exam General: Alert, Oriented, Cooperative Lungs: Clear to Auscultation, Normal Respiratory Effort Cardiovascular: Regular Rate, Regular Rhythm GI/Abdominal Exam: Soft, Non-Tender Extremities: Normal Inspection Skin: Warm, Dry, Intact - Problem List & Annotations (1) 40 weeks gestation of SNOMED Code(s): 68348787 Code(s): Z3A.40 - 40 WEEKS GESTATION OF Status: Acute Current Visit: Yes (2) Choroid plexus cyst of fetus SNOMED Code(s): 304829934 Code(s): KRR1711 - Status: Acute Current Visit: Yes (3) Vaginal delivery SNOMED Code(s): 594347787 Code(s): O80 - ENCOUNTER FOR FULL-TERM UNCOMPLICATED DELIVERY Status: Resolved Current Visit: No - Problem List Review Problem List Initiated/Reviewed/Updated: Yes - My Orders Last 24 Hours: My Active Orders 02/22/20 Breakfast Regular Diet [DIET] 02/23/20 02:25 Heat Therapy [OM.PC] PRN - Assessment Assessment:: PPD#1 - Plan Plan:: * Routine cares * breast feeding * Discharge home today
[2020-02-23 08:42] VITALS: BP 105/81; PULSE 98
== END 2020-02-23 09:20 | disposition home or self-care (01) | DRG 560 ==
LOC: JD.OB 02:00 → OBSVTOIN 02-22 02:00 → JD.OB 02-22 02:01
PROVIDERS: ADMIT Obstetrics & Gynecology; ATTEND Obstetrics & Gynecology
PROC: 10D07Z6 Extraction of Products of Conception, Vacuum, Via Natural or Artificial Opening (ICD-10-PCS; principal; 2020-02-22)
PROC: 10907ZC Drainage of Amniotic Fluid, Therapeutic from Products of Conception, Via Natural or Artificial Opening (ICD-10-PCS; 2020-02-22)
PROC: 3E033VJ Introduction of Other Hormone into Peripheral Vein, Percutaneous Approach (ICD-10-PCS; 2020-02-22)
PROC: 3E0R3BZ Introduction of Anesthetic Agent into Spinal Canal, Percutaneous Approach (ICD-10-PCS; 2020-02-22)
PROC: 00HU33Z Insertion of Infusion Device into Spinal Canal, Percutaneous Approach (ICD-10-PCS; 2020-02-22)
DX: O48.0 Post-term pregnancy (principal); Z37.0 Single live birth; Z3A.40 40 weeks gestation of pregnancy; O99.89 Other specified diseases and conditions complicating pregnancy, childbirth and the puerperium; R00.1 Bradycardia, unspecified; Z11.59 Encounter for screening for other viral diseases
CPT/HCPCS: 36415; 51702; 59025; 59409; 85027; 86592; 86850; 86900; 86901; A9270-GY; J2405; J2590; J3010; J3490; J7120; U0002